=== PATIENT | female | born 1970 | race Hispanic/Latino ===

== ENCOUNTER 2022-08-05 15:45 | Inpatient (IN) | payer BC ==
[~2022-08-05] VITALS: Ht 157.5 cm; Wt 74.0 kg
[2022-08-05] MEDS ORDERED: MORPHINE 2 MG SYG IVP ONE (16:30)
[2022-08-05] MEDS ORDERED: ONDANSETRON 4MG INJ IVP ONE (16:30)
[2022-08-05 16:40] LABS: BASOPHILS % (AUTO) 0.1 % (0.0-5.0); EOSINOPHILS % (AUTO) 3.9 % (0.0-8.0); HEMATOCRIT 42.7 % (36-48); LYMPHOCYTES % (AUTO) 19.5 % (21.0-51.0); MEAN CORPUSCULAR HGB CONC 32.3 g/dL (32.0-36.0); MEAN CORPUSCULAR VOLUME 86.6 fL (79-99); MONOCYTES % (AUTO) 17.1 % (3.0-13.0); NEUTROPHILS % (AUTO) 59.3 % (40.0-77.0); PLATELET COUNT (AUTO) 214 K/uL (130-400); RED BLOOD CELL COUNT(AUTO) 4.93 MIL/uL (4.00-5.50); RED CELL DISTRIBUTION WIDTH 12.2 % (11.0-15.5); WHITE BLOOD COUNT (AUTO) 7.4 K/uL (4.8-10.8)
[2022-08-05 16:51] LABS: CREATININE 0.7 mg/dL (0.5-1.5)
[2022-08-05 16:56] LABS: ALBUMIN 3.1 g/dL (3.5-5.0); CRP QUANTITATIVE 137.1 mg/L (0.00-9.0); TOTAL PROTEIN, SERUM 6.4 g/dL (6.0-8.3)
[2022-08-05] MEDS ORDERED: SOLU-MEDROL 125MG VIAL IVP SCH (18:00)
[2022-08-05] MEDS ORDERED: LACTULOSE 20 GM/30 ML UDCUP PO PRN (18:30)
[2022-08-05] MEDS ORDERED: ACETAMINOPHEN 325 MG TAB PO PRN ×2 (18:30)
[2022-08-05] MEDS ORDERED: ONDANSETRON 4MG INJ IV PRN (18:30)
[2022-08-05] MEDS: FAMOTIDINE 20MG TAB PO SCH (20:20)
[2022-08-05] MEDS: 0.9%NACL 1000ML 1,000 ML IV SCH (20:21)
[2022-08-05 21:40] VITALS: BP 103/67
[2022-08-05 21:54] LABS: APPEARANCE,URINE CLEAR (CLEAR); BILIRUBIN,URINE NEGATIVE (NEGATIVE); COLOR,URINE YELLOW (YELLOW); GLUCOSE, URINE (UA) NEGATIVE (NEGATIVE); KETONES,URINE NEGATIVE (NEGATIVE); LEUKOCYTE ESTERASE ,URINE 500 Leu/uL (NEGATIVE); NITRATE,URINE NEGATIVE (NEGATIVE); OCCULT BLOOD,URINE NEGATIVE (NEGATIVE); PH,URINE 5.5 (5.0-8.0); PROTEIN,URINE 20 mg/dL (NEGATIVE); UROBILINOGEN,URINE 0.2 mg/dL (0.2-1.0)
[2022-08-05 22:04] LABS: BACTERIA,URINE FEW /HPF (None Seen); MUCUS,URINE FEW LPF (None Seen); SQUAMOUS EPITHELIAL CELL,UR RARE /HPF (0-2); WBC,URINE 26-50 /HPF (0-1)
[2022-08-05] MEDS ORDERED: ACET-2079 PO (22:34)
[2022-08-05 23:28] VITALS: BP 96/53
[2022-08-06] MEDS: SOLU-MEDROL 40MG VIAL IVP SCH ×3 (01:14→17:02)
[2022-08-06 03:22] VITALS: BP 114/63
[2022-08-06] MEDS: 0.9%NACL 1000ML 1,000 ML IV SCH ×2 (04:08→17:00)
[2022-08-06 07:50] VITALS: BP 97/57
[2022-08-06] MEDS: FAMOTIDINE 20MG TAB PO SCH ×2 (08:21→20:56)
[2022-08-06 11:45] VITALS: BP 103/60
[2022-08-06] MEDS ORDERED: PREDNISONE 20 MG TABLET PO SCH (12:30)
[2022-08-06 15:40] VITALS: BP 107/53
[2022-08-06] MEDS: CEFTRIAXONE 1G VIAL IVP SCH (16:58)
[2022-08-06] MEDS ORDERED: MENTHOL TP PRN (17:00)
[2022-08-06] MEDS ORDERED: ZINC OXIDE TP PRN (17:00)
[2022-08-06 20:00] VITALS: BP 118/64
[2022-08-06] MEDS: MENTHOL TP SCH (21:01)
[2022-08-06] MEDS: ZINC OXIDE TP SCH (21:01)
[2022-08-07] VITALS: BP 122/72
[2022-08-07] MEDS: SOLU-MEDROL 40MG VIAL IVP SCH (03:25)
[2022-08-07] MEDS: 0.9%NACL 1000ML 1,000 ML IV SCH ×3 (03:25→19:15)
[2022-08-07 04:00] VITALS: BP 105/67
[2022-08-07 06:21] LABS: HEMATOCRIT 33.3 % (36-48); MEAN CORPUSCULAR HEMOGLOBIN 28.4 pg (27.0-33.0); RED BLOOD CELL COUNT(AUTO) 3.87 MIL/uL (4.00-5.50)
[2022-08-07 06:26] LABS: CREATININE 0.6 mg/dL (0.5-1.5); POTASSIUM 4.2 mmol/L (3.5-5.1)
[2022-08-07] MEDS ORDERED: PRED50TA2 PO (07:49)
[2022-08-07] MEDS ORDERED: MYCO500T PO (07:49)
[2022-08-07] MEDS ORDERED: AMOX1TAB15 PO (07:49)
[2022-08-07 08:05] LABS: CRP QUANTITATIVE 50.5 mg/L (0.00-9.0)
[2022-08-07 08:25] VITALS: BP 94/52
[2022-08-07] MEDS: FAMOTIDINE 20MG TAB PO SCH ×2 (08:51→20:16)
[2022-08-07] MEDS: PREDNISONE 20 MG TABLET PO SCH (08:52)
[2022-08-07] MEDS: MENTHOL TP SCH ×2 (08:53→20:19)
[2022-08-07] MEDS: ZINC OXIDE TP SCH ×2 (08:53→20:19)
[2022-08-07] MEDS ORDERED: MYCOPHENOLATE MOFETIL 250 MG CAPSULE PO SCH (09:00)
[2022-08-07 11:30] VITALS: BP 114/66
[2022-08-07] MEDS: CEFTRIAXONE 1G VIAL IVP SCH (15:29)
[2022-08-07 16:00] VITALS: BP 141/64
[2022-08-07] MEDS ORDERED: DIPHENHYDRAMINE HCL 25 MG CAPSULE PO PRN (16:00)
[2022-08-07] MEDS: OLOPATADINE HCL 0.1% 5ML DROPS OU SCH ×2 (16:30→19:15)
[2022-08-07 20:00] VITALS: BP 130/78
[2022-08-08] VITALS: BP 126/70
[2022-08-08 04:00] VITALS: BP 105/61
[2022-08-08] MEDS: 0.9%NACL 1000ML 1,000 ML IV SCH (05:37)
[2022-08-08 07:30] VITALS: BP 114/73
[2022-08-08] MEDS ORDERED: SOLU-MEDROL 40MG VIAL IVP SCH (09:00)
[2022-08-08] MEDS ORDERED: MYCOPHENOLATE MOFETIL 250 MG CAPSULE PO SCH (09:00)
[2022-08-08] MEDS: OLOPATADINE HCL 0.1% 5ML DROPS OU SCH (09:30)
[2022-08-08] MEDS: PREDNISONE 20 MG TABLET PO SCH (09:32)
[2022-08-08] MEDS: FAMOTIDINE 20MG TAB PO SCH (09:34)
[2022-08-08] MEDS: MENTHOL TP SCH (09:56)
[2022-08-08] MEDS: ZINC OXIDE TP SCH (09:56)
[2022-08-08 11:27] VITALS: BP 118/71
[2022-08-08] MEDS ORDERED: LEVOFLOXACIN 750 MG/D5W 150ML BAG IVPB SCH (11:30)
[2022-08-08] MEDS ORDERED: PRED50TA2 PO (12:01)
[2022-08-08 12:35] LABS: HEMOGLOBIN A1C 5.4 % (4.0-6.0)
[2022-08-08] MEDS ORDERED: MYCO500T5 PO (12:46)
[2022-08-08] MEDS ORDERED: PANT20TA PO (12:46)
[2022-08-08 15:05] VITALS: BP 97/57
== END 2022-08-08 16:55 | disposition home or self-care (01) | DRG 596 ==
LOC: EDH 15:45 → EDHIP 18:18 → 3DH 20:12
PROVIDERS: ADMIT Hospitalist; ATTEND Hospitalist
DX: L10.0 Pemphigus vulgaris (principal); N39.0 Urinary tract infection, site not specified; H60.92 Unspecified otitis externa, left ear
CPT/HCPCS: 36415; 70486; 71045; 80048; 80053; 81001; 82550; 82948; 83036; 83605; 85025; 85027; 86140; 87040; 87070; 87076; 87077; 87088; 87186; G0378; J0696; J1956; J2405; J2920; J2930; J7030; J7517; Q0163